=== PATIENT | female | born 1950 | race Caucasian/White ===

== ENCOUNTER → 2017-01-22 | Outpatient (CLI) | payer OTHER | LOC: BRMIMAGING 11:08 | PROVIDERS: ATTEND Internal Medicine | DX: M54.5 Low back pain (principal); C34.90 Malignant neoplasm of unspecified part of unspecified bronchus or lung | CPT/HCPCS: 72114-PO; 72202-PO ==

== ENCOUNTER → 2018-03-20 | Outpatient (CLI) | payer OTHER | LOC: BMCIMAGING 10:13 | PROVIDERS: ATTEND Family Medicine | DX: N63.22 Unspecified lump in the left breast, upper inner quadrant (principal) ==

== ENCOUNTER → 2018-03-28 | Day surgery (SDC) | payer OTHER ==
[~2018-03-28] MED LIST: BUPIVACAINE 0.5% 30 ML SDV ONE; LIDOCAINE 1% 300 MG/30 ML SDV ONE; THROMBIN (BOVINE) 5,000 UNIT VIAL TP ONE
== END | disposition home or self-care (01) ==
LOC: FIMAGING 07:39
PROVIDERS: ATTEND Family Medicine
DX: C50.912 Malignant neoplasm of unspecified site of left female breast (principal); Z17.0 Estrogen receptor positive status [ER+]; Z85.118 Personal history of other malignant neoplasm of bronchus and lung